=== PATIENT | female | born 1930 | race Caucasian/White ===

== ENCOUNTER → 2020-06-11 | Outpatient (CLI) | payer OTHER ==
[~2020-06-11] MED LIST: CRANBERRY CAP
== END | disposition home or self-care (01) ==
LOC: PLD 07:29 → LAB SHORT 07:29
DX: L82.0 Inflamed seborrheic keratosis (principal); D48.5 Neoplasm of uncertain behavior of skin
CPT/HCPCS: 88305

== ENCOUNTER → 2020-07-14 | Outpatient (CLI) | payer OTHER | END | disposition home or self-care (01) | LOC: LAB SHORT 15:04 → PLD 15:04 | DX: L82.1 Other seborrheic keratosis (principal) | CPT/HCPCS: 88305 ==